=== PATIENT | female | born 1955 | race Two or more races ===

== ENCOUNTER → 2016-05-20 | Outpatient (REF) | payer BC | LOC: M SMT 16:52 | PROVIDERS: ATTEND Nurse Practitioner Women's Health | DX: R31.29 Other microscopic hematuria (principal) ==

== ENCOUNTER → 2016-06-02 | Outpatient (CLI) | payer BC ==
[~2016-06-02] MED LIST: ISOVUE-370 76% 100ML VIAL (Q9967) As Ordered ONE
--- NOTE | 2016-06-02 14:53 | REP ---
CT ABDOMEN AND PELVIS WITH AND WITHOUT IV CONTRAST: CT ABDOMEN AND PELVIS WITH AND WITHOUT CONTRAST: TECHNIQUE: Axial noncontrast images through the abdomen followed by contrast-enhanced images through the abdomen and pelvis using 100 mL Isovue 370 intravenous contrast material, with coronal and sagittal reformations. There is a calcified granuloma in the right lung base. The liver demonstrates a cyst posteriorly in the right lobe, with a maximum diameter of 9 mm. No other liver or gallbladder abnormality is seen. The spleen, adrenals, pancreas and kidneys are normal in appearance. No renal or ureteral calculi are seen. There is no hydroureteronephrosis. There is no evidence of a renal mass. The ureters appear unremarkable. The urinary bladder appears unremarkable. Atherosclerotic calcifications are seen of the abdominal aorta without aneurysm. There is no adenopathy, free air or free fluid. No bowel wall thickening is seen. No pelvic mass is seen. There is spondylolysis of L5 with mild anterior grade 1 spondylolisthesis of L5 on S1. IMPRESSION: Small cyst in the right lobe of the liver. Spondylolysis of L5 with mild anterior grade 1 spondylolisthesis of L5 on S1. No renal, ureteral or bladder, abnormality is seen. Signed by El Vargas MD 06/02/2016 05:00 P
== END ==
LOC: M RAD 12:03
PROVIDERS: ATTEND Nurse Practitioner Women's Health
DX: R31.29 Other microscopic hematuria (principal)
CPT/HCPCS: 74178; Q9967